=== PATIENT | female | born 1980 | race Caucasian/White ===

== ENCOUNTER 2017-08-30 12:32 | Emergency (ER) | payer BC | END 2017-08-30 14:12 | disposition left against medical advice (07) | LOC: UCCORT 12:32 | DX: M25.512 Pain in left shoulder (principal); M25.511 Pain in right shoulder; M79.622 Pain in left upper arm; M79.621 Pain in right upper arm; Z53.21 Procedure and treatment not carried out due to patient leaving prior to being seen by health care provider ==

== ENCOUNTER 2017-08-30 16:35 | Emergency (ER) | payer BC ==
--- NOTE | 2017-08-30 17:09 | UC ---
Upper Extremity HPI - HPI Summary HPI Summary: 37 year old female presents with severe muscle pain with no trauma. - History of Current Complaint Stated Complaint: SHOULDER PAIN Time Seen by Provider: 08/30/17 17:08 Hx Obtained From: Patient Hx Last Menstrual Period: 11/02/12 Onset/Duration: Lasting Days Severity Initially: Moderate Severity Currently: Moderate Pain Scale Used: 0-10 Numeric - 5 Location Of Pain: Is Diffuse Character: Sharp Aggravating Factor(s): Lifting, Flexion, Extension, Internal/External Rotation, Abduction, Adduction Alleviating Factor(s): Nothing Associated Signs And Symptoms: Positive: Negative - Allergies/Home Medications Allergies/Adverse Reactions: Allergies Allergy/AdvReac Type Severity Reaction Status Date / Time Penicillins AdvReac Intermediate Rash Verified 08/30/17 17:22 Home Medications: Home Medications Gabapentin CAP(*) [Neurontin 100 mg CAP(*)] 100 mg PO TID 08/30/17 [History Confirmed 08/30/17] PMH/Surg Hx/FS Hx/Imm Hx Previously Healthy: Yes - Surgical History Surgical History: Yes Surgery Procedure, Year, and Place: gastric by-pass 2010 - Family History Known Family History: Positive: None - Social History Substance Use Type: None Review of Systems Constitutional: Negative Skin: Negative Eyes: Negative ENT: Negative Respiratory: Negative Cardiovascular: Negative Gastrointestinal: Negative Genitourinary: Negative Motor: Negative Neurovascular: Negative Musculoskeletal: Myalgia Neurological: Negative Psychological: Negative All Other Systems Reviewed And Are Negative: Yes Physical Exam Triage Information Reviewed: Yes Vital Signs Reviewed: Yes Eye Exam: Normal ENT Exam: Normal Dental Exam: Normal Neck exam: Normal Neck: Positive: 1 Respiratory Exam: Normal Cardiovascular Exam: Normal Abdominal Exam: Normal Musculoskeletal: Positive: Strength Limited @, ROM Limited @ Neurological Exam: Normal Psychological Exam: Normal Skin Exam: Normal Upper Extremity Course/Dx - Differential Dx/Diagnosis Provider Diagnoses: mylagia. body aches. tendonitis Discharge - Discharge Plan Condition: Stable Disposition: HOME Prescriptions: Methocarbamol TAB* [Robaxin 500 MG TAB*] 500 mg PO TID PRN #30 tab PRN Reason: Spasms Methylprednisolone [Medrol Dosepak 4 MG*] 4 mg PO .SEE [employer]CTION #21 tab Patient Education Materials: Musculoskeletal Pain (ED), Muscle Spasm (ED) Referrals: GODWIN Dseai [Primary Care Provider] - Additional Instructions: rhematology referral please get mammogram ordered by PCP
[2017-08-30 17:22] VITALS: BP 138/83
== END 2017-08-30 17:40 | disposition home or self-care (01) ==
LOC: UCCORT 16:35
DX: M79.1 Myalgia (principal); M75.90 Shoulder lesion, unspecified, unspecified shoulder
CPT/HCPCS: 99202; G0463